=== PATIENT | female | born 1990 | race Caucasian/White ===

== ENCOUNTER 2018-11-15 12:45 | Emergency (ER) | payer BC, MEDICAID ==
[~2018-11-15] VITALS: Ht 167.6 cm; Wt 64.1 kg
[2018-11-15 13:14] VITALS: BP 116/70
[2018-11-15] MEDS ORDERED: dexamethasone sod phosphate 10mg/ml inj IV STA (14:34)
[2018-11-15] MEDS ORDERED: normal saline 1000ML IV soln IVB ONE (14:35)
[2018-11-15] MEDS ORDERED: metoclopramide 5 mg/ml inj IV ONE (14:35)
[2018-11-15] MEDS ORDERED: LORazepam 2 mg/ml vial IV ONE (14:35)
[2018-11-15] MEDS ORDERED: ketorolac trometh. 30mg/ml inj. IV ONE (14:35)
== END 2018-11-15 16:03 | disposition home or self-care (01) ==
LOC: ER 12:45
DX: G43.909 Migraine, unspecified, not intractable, without status migrainosus (principal)
CPT/HCPCS: 96374; 96375; 99283; J1100; J1885; J2060; J2765; J7030